=== PATIENT | male | born 1965 | race African-American/Black ===

== ENCOUNTER 2016-12-07 22:46 | Emergency (ER) | payer OTHER ==
[2016-12-07] MEDS ORDERED: Sodium Chloride 0.9% 1,000 ML IV ONE (23:06)
[2016-12-07 23:44] LABS: % BASOPHILS 2.4 % (0.0-2.0); % EOSINOPHILS 0.4 % (0.0-5.0); % LYMPHOCYTES 13.3 % (20.0-50.0); % MONOCYTES 7.9 % (2.0-10.0); HEMATOCRIT 54.8 % (39.0-49.0); MEAN CELL VOLUME 82.4 fl (80-99); MEAN CORPUSCULAR HEMOGLOBIN 27.1 pg (26.0-30.0); MEAN CORPUSCULAR HGB CONC 32.9 pg (28.0-36.0); MEAN PLATELET VOLUME 9.1 fl; NEUTROPHILE ABSOLUTE 6.3 Th/cmm (1.8-8.0); PLATELET COUNT 261 Th/cmm (150-400); RED BLOOD COUNT 6.65 Mil/cmm (4.30-5.70); RED CELL DISTRIBUTION WIDTH 15.7 % (11.5-20.0); WHITE BLOOD COUNT 8.3 Th/cmm (4.8-10.8)
[2016-12-07 23:50] LABS: ALB/GLOB RATIO 1.1 (1.0-1.8); ANION GAP 13.4 (7.0-16.0); BILIRUBIN,TOTAL 1.8 mg/dL (0.3-1.0); BUN/CREATININE RATIO 13.3; CALCIUM SERUM 10.2 mg/dL (8.6-10.3); CARBON DIOXIDE 25.1 mEq/L (21.0-31.0); CREATININE - SERUM 1.8 mg/dL (0.7-1.3); POTASSIUM SERUM 4.5 mEq/L (3.5-5.1)
[2016-12-07 23:51] LABS: CHOLESTEROL 264 mg/dL (<200); TRIGLYCERIDES 166 mg/dL (<150)
[2016-12-07 23:52] LABS: INR 0.96 (0.5-1.4)
--- NOTE | 2016-12-07 23:55 | ED Physician Chart ---
Chief Complaint/HPI - Patient Information Date Seen:: 12/07/16 Time Seen:: 23:00 Chief Complaint:: SHORTNESS OF BREATH History of Present Illness:: THIS IS A 51 YO MALE WITH HYPERTENSION, CHF AND DIABETES MELLITUS. HE ADMIT TO USING COCAINE AND DENIES ALCOHOL INGESTION. HE DENIES EVER HAVING A HEART ATTACK. HE DENIES HAVING CHEST PAIN, PALPATATIONS AND WHEEZES. Allergies:: Allergies Allergy/AdvReac Type Severity Reaction Status Date / Time cephalexin [From Keflex] Allergy Verified 12/07/16 23:04 Vitals:: Vital Signs - 8 hr 12/07/16 22:55 Temp 98.6 F HR 80 RR 20 BP 140/70 O2 Sat % 100 Historian:: Patient, EMS Review:: Nurse's Note Reviewed Review of Systems - Review of Systems General/Constitutional: No fever, No chills, No weight loss, Weakness, No diaphoresis, No edema, No loss of appetite Skin: No skin lesions, No rash, No bruising Head: No headache, No light-headedness Eyes: No loss of vision, No pain, No diplopia ENT: No earache, No nasal drainage, No sore throat, No tinnitus Neck: No neck pain, No swelling, No thyromegaly, No stiffness, No mass noted Cardio Vascular: No chest pain, No palpitations, PND, orthopnea, No edema Pulmonary: SOB, No cough, No sputum, No wheezing GI: No nausea, No vomiting, No diarrhea, No pain, No melena, No hematochezia, No constipation, No hematemesis G/U: No dysuria, No frequency, No hematuria Musculoskeletal: No bone or joint pain, No back pain, No muscle pain Endocrine: No polyuria, No polydipsia Psychiatric: No prior psych history, No depression, No anxiety, No suicidal ideation Hematopoietic: No bruising, No lymphadenopathy Allergic/Immuno: No urticaria, No angioedema Neurological: No syncope, No focal symptoms, No weakness, No paresthesia, No headache, No seizure, No dizziness, No confusion, No vertigo Past Medical History - Past Medical History Obtainable: Yes Past Medical History: HTN, DM, CHF Family History: None Social History: Smoker, No Alcohol, Illicit Drug Use, Single, Homeless Surgical History: None Psychiatricy History: None Medication: Reviewed Family Medical History - Family Member Mother History Unknown: Yes Physical Exam - Physical Examination General/Constitutional: Awake, Well-developed, well-nourished, Alert, No distress, GCS 15, Non-toxic appearing, Ambulatory Other Gen/Cons comments:: DEHYDRATED Head: Atraumatic Eyes: Lids, conjuctiva normal, PERRL, EOMI Skin: Nl inspection, No rash, No skin lesions, No ecchymosis, Well hydrated, No lymphadenopathy ENMT: External ears, nose nl, Nasal exam nl, Lips, teeth, gums nl Neck: Nontender, Full ROM w/o pain, No JVD, No nuchal rigidity, No bruit, No mass, No stridor Respiratory: Nl effort/Exclusion, Clear to Auscultation, No Wheeze/Rhonchi/Rales Cardio Vascular: RRR, No murmur, gallop, rubs, NL S1 S2 GI: No tenderness/rebounding/guarding, No organomegaly, No hernia, Normal BS's, Nondistended, No mass/bruits, No McBurney tenderness : No CVA tenderness Extremities: No tenderness or effusion, Full ROM, normal strength in all extremities, No edema, Normal digits & nails Neuro/Psych: Alert/oriented, DTR's symmetric, Normal sensory exam, Normal motor strength, Judgement/insight normal, Mood normal, Normal gait, No focal deficits Misc: normal gait, Normal back, No paraspinal tenderness Labs/Radiology/EKG Results - Lab Results Results: Laboratory Tests 12/07/16 23:19 WBC 8.3 RBC 6.65 H Hgb 18.0 H Hct 54.8 H MCV 82.4 MCH 27.1 MCHC Differential 32.9 RDW 15.7 Plt Count 261 MPV 9.1 Neutrophils % 76.0 Lymphocytes % 13.3 L Monocytes % 7.9 Eosinophils % 0.4 Basophils % 2.4 H - Radiology Results Results: CHEST X-RAY = NAD - EKG Interpretations EKG Time:: 23:13 Rate & Rhythm: BFDB=250,SINUS TACHY [place]: RIGHT AXIS Assessment - Assessment General Assessment: DRUG ABUSE AND ELEVATED PULSE ED Septic Shock - . Is Septic Shock (SBP<90, OR Lactate>4 mmol\L) present?: No - <6hrs of presentation: Vital Signs: Vital Signs - 8 hr 12/07/16 22:55 Temp 98.6 F HR 80 RR 20 BP 140/70 O2 Sat % 100 Reassessment (Disposition) - Reassessment Reassessment Condition:: Improved - Diagnosis Diagnosis:: DRUG ABUSE TACHYCARDIA - Aftercare/Follow up Instructions Aftercare/Follow-Up Instructions:: Counseled pt regarding lab results/diagnosis & need follow up, Refer to Discharge Instructions, Counseled pt & family regarding lab results/diagnosis & need follow up - Patient Disposition Discharge/Transfer:: Home Condition at Disposition:: Improved
[2016-12-08] MEDS ORDERED: Lactated Ringer 1,000 ML IV ONE ×2 (00:07)
[2016-12-08 00:25] LABS: AMPHETAMINE URINE POSITIVE (NEGATIVE); BARBITURATES URINE NEGATIVE (NEGATIVE); METHADONE URINE NEGATIVE (NEGATIVE)
[2016-12-08 00:26] LABS: URINE BILIRUBIN SMALL (NEGATIVE); URINE COLOR ORANGE; URINE GLUCOSE (UA) NEGATIVE (NEGATIVE); URINE KETONE TRACE mg/dL (NEGATIVE)
[2016-12-08 00:27] LABS: URINE BLOOD SMALL (NEGATIVE); URINE PROTEIN >300 mg/dL (NEGATIVE); URINE UROBILINOGEN 0.2 E.U./dL (0.2 - 1.0)
[2016-12-08 00:29] LABS: URINE BACTERIA FEW /hpf (NONE SEEN); URINE EPITHELIAL CELLS FEW /lpf (FEW); URINE RBC 0-2 /hpf (0-5); URINE WBC 0-2 /hpf (0-5)
--- NOTE | 2016-12-08 09:31 | Diagnostic Imaging Report ---
Portable chest x-ray HISTORY: Shortness of breath The heart appears somewhat enlarged. Cardiac electrode lead wires project over the right atrium and right ventricle. No focal pulmonary processes. No hilar or mediastinal abnormalities. IMPRESSION: 1. No acute pulmonary processes 2. Generous heart size with cardiac electrode placements as noted above
== END 2016-12-08 06:27 | disposition home or self-care (01) ==
LOC: ER 22:46
DX: R00.0 Tachycardia, unspecified (principal); F19.10 Other psychoactive substance abuse, uncomplicated; I11.0 Hypertensive heart disease with heart failure; I50.9 Heart failure, unspecified; E11.9 Type 2 diabetes mellitus without complications; F17.200 Nicotine dependence, unspecified, uncomplicated; Z88.0 Allergy status to penicillin
CPT/HCPCS: 36415-UA; 71010-TC; 80053-TC; 80061-TC; 80307; 81001-TC; 84443-TC; 84484-TC; 85025-TC; 85610-TC; 85730-TC; 86592-TC; 93005; J7030